=== PATIENT | male | born 1965 | race Hispanic/Latino ===

== ENCOUNTER 2022-12-28 18:43 | Emergency (ER) | payer SELFPAY ==
[~2022-12-28] VITALS: Ht 172.7 cm; Wt 111.1 kg
[2022-12-28] MEDS ORDERED: BACITRACIN ZINC 0.9GM TP ONE (19:05)
[2022-12-28] MEDS ORDERED: LIDOCAINE HCL 1% LOCAL INJ 20 ML VIAL ONE (19:05)
[2022-12-28] MEDS ORDERED: TETANUS/DIPHTHERIA TOX ADULT 0.5 ML SYR IM ONE (19:15)
[2022-12-28] MEDS ORDERED: KEFLEX125 MG/5 M PO (19:19)
[2022-12-28 19:33] VITALS: BP 115/76
== END 2022-12-28 19:35 | disposition home or self-care (01) ==
LOC: ER 18:49
DX: S51.812A Laceration without foreign body of left forearm, initial encounter (principal); W27.0XXA Contact with workbench tool, initial encounter; Y92.89 Other specified places as the place of occurrence of the external cause
CPT/HCPCS: 12002; 73090; 90471; 90714; 99284; J2001